=== PATIENT | female | born 1945 | race Caucasian/White ===

== ENCOUNTER 2021-10-27 06:37 | Outpatient (CLI) | payer MEDICARE, BC | END 2021-10-27 09:30 | disposition home or self-care (01) | LOC: LAB 06:37 | PROVIDERS: ATTEND Orthopaedic Surgery | DX: Z01.812 Encounter for preprocedural laboratory examination (principal); Z20.822 Contact with and (suspected) exposure to COVID-19 ==

== ENCOUNTER 2021-12-21 10:23 | Outpatient (CLI) | payer MEDICARE, BC | END 2021-12-21 23:59 | disposition home or self-care (01) | LOC: LAB 10:23 | PROVIDERS: ATTEND Orthopaedic Surgery | DX: Z01.812 Encounter for preprocedural laboratory examination (principal); Z20.822 Contact with and (suspected) exposure to COVID-19 ==

== ENCOUNTER 2021-12-23 07:07 | Day surgery (SDC) | payer MEDICARE, BC ==
[2021-12-23] MEDS ORDERED: PROPOFOL 200 MG/20 ML BOTTLE IV ONE (07:08)
[2021-12-23] MEDS ORDERED: SEVOFLURANE 250 ML BOTTLE IH ONE (07:08)
[2021-12-23] MEDS ORDERED: LIDOCAINE-MPF 2% 5 ML VIAL IJ ONE (07:08)
[2021-12-23] MEDS ORDERED: CEFAZOLIN 1 G VIAL IM ONE (07:08)
[2021-12-23] MEDS ORDERED: DEXAMETHASONE SOD PHOSPHATE 4 MG INJ IV ONE (07:08)
[2021-12-23 08:14] LABS: *BILIRUBIN,URIN NEGATIVE (NEGATIVE); *CLARITY,URINE CLEAR (CLEAR); *COLOR,URINE YELLOW (YELLOW); *KETONES,URINE NEGATIVE (NEGATIVE); *UROBILINOGEN,URINE 0.2 E.U./dl (NORMAL); LEUKOCYTE ESTERASE ,URINE NEGATIVE (NEGATIVE); NITRITE, URINE NEGATIVE (NEGATIVE); PH,URINE 7.5 (5.0-8.0); UGLUCOSE NEGATIVE (NEGATIVE)
[2021-12-23 08:16] LABS: *BLOOD, URINE TRACE (NEGATIVE)
[2021-12-23] MEDS ORDERED: MORPHINE SULFATE PF 10 MG/10 ML AMPUL IV ONE (09:39)
[2021-12-23] MEDS ORDERED: BUPIVACAINE 0.25% 30 ML VIAL ONE (09:46)
[2021-12-23] MEDS ORDERED: HYDROMORPHONE 2 MG/1 ML DISP.SYRIN ONE (09:48)
[2021-12-23] MEDS ORDERED: FAMOTIDINE. 20 MG/2 ML VIAL IV ONE (10:01)
[2021-12-23] MEDS ORDERED: HYDROMORPHONE 1 MG/1 ML DISP.SYRIN ONE (11:09)
[2021-12-23] MEDS ORDERED: ONDANSETRON 4 MG/2 ML VIAL ONE (11:09)
[2021-12-23] MEDS ORDERED: diphenhydrAMINE 50 MG/1 ML VIAL ONE (11:17)
[2021-12-23 12:27] LABS: BACTERIA,URINE NONE SEEN /HPF (NONE SEEN); SQUAMOUS EPITHELIAL CELL,UR FEW /HPF (NONE SEEN); WBC,URINE NONE SEEN /HPF (0-3)
[2021-12-23 12:28] LABS: RBC,URINE 0-3 /HPF (0-3)
[2021-12-23] MEDS ORDERED: diphenhydrAMINE 25 MG CAP PO PRN (13:15)
== END 2021-12-23 14:00 | disposition home or self-care (01) ==
LOC: DS 07:07
PROVIDERS: ATTEND Orthopaedic Surgery
DX: S83.272A Complex tear of lateral meniscus, current injury, left knee, initial encounter (principal); S83.242A Other tear of medial meniscus, current injury, left knee, initial encounter; M94.262 Chondromalacia, left knee; M65.88 Other synovitis and tenosynovitis, other site; K21.9 Gastro-esophageal reflux disease without esophagitis; E03.9 Hypothyroidism, unspecified; F41.9 Anxiety disorder, unspecified; Z79.899 Other long term (current) drug therapy; Z98.890 Other specified postprocedural states; X58.XXXA Exposure to other specified factors, initial encounter; Y93.89 Activity, other specified; Y92.89 Other specified places as the place of occurrence of the external cause; Y99.8 Other external cause status
CPT/HCPCS: 29880; 81001; Q0163; J3490 ×3; J0690; J1100; J1200; J2405; J1170 ×2; J2274; J7120; J7040; A4663